=== PATIENT | female | born 1995 | race Caucasian/White ===

== ENCOUNTER 2020-07-23 17:09 | Observation (INO) | payer OTHER, MEDICAID ==
[2020-07-23] MEDS ORDERED: BETAMET ACET/BETAMET NA INJ 6 MG/1 ML IM ONE (18:55)
[2020-07-23] MEDS ORDERED: BETAMET ACET/BETAMET NA INJ 6 MG/1 ML ONE (19:11)
[2020-07-23 19:36] LABS: BACTERIA (WET MOUNT) 4+ BACTERIA SEEN; EPITHELIALS (WET MOUNT) 3+ EPITHELIALS SEEN; RBCS (WET MOUNT) RARE RBCS SEEN; T.VAGINALIS (WET MOUNT) NO TRICHOMONAS SEEN; WBCS (WET MOUNT) 3+ WBCS SEEN; YEAST (WET MOUNT) NO YEAST SEEN
[2020-07-23] MEDS ORDERED: LABETALOL HCL 200 MG TABLET ONE (19:51)
[2020-07-23] MEDS ORDERED: RINGERS SOLUTION,LACTATED 1,000 ML IV ONE (20:28)
[2020-07-23] MEDS ORDERED: RINGERS SOLUTION,LACTATED 1,000 ML IV PRN (20:28)
[2020-07-23 20:44] LABS: URINE BARBITURATES SCREEN NEGATIVE; URINE BENZODIAZEPINES SCREEN NEGATIVE; URINE COCAINE SCREEN NEGATIVE; URINE MARIJUANA (THC) SCREEN NEGATIVE; URINE METHADONE SCREEN NEGATIVE; URINE PHENCYCLIDINE SCREEN NEGATIVE
[2020-07-23 20:48] LABS: URINE AMPHETAMINES SCREEN UNCONFIRMED POSITIVE
[2020-07-23 21:02] LABS: CHLAM PCR NOT DETECTED (NOT DETECT)
[2020-07-23 21:16] LABS: AMORPHOUS SEDIMENT,URINE TRACE /HPF; APPEARANCE,URINE CLOUDY; BILIRUBIN,URINE NEGATIVE (NEGATIVE); COLOR,URINE AMBER; GLUCOSE, URINE NEGATIVE (NEGATIVE); KETONES,URINE NEGATIVE (NEGATIVE); LEUKOCYTE ESTERASE,URINE SMALL (NEGATIVE); NITRITE,URINE NEGATIVE (NEGATIVE); PROTEIN,URINE 100 mg/dL (NEGATIVE); URINE SPECIFIC GRAVITY 1.015
[2020-07-23] MEDS ORDERED: NIFEDIPINE 30 MG TAB.ER.24 PO ONE ×2 (21:42→22:25)
[2020-07-23] MEDS ORDERED: LABETALOL HCL 200 MG TABLET PO SCH (22:00)
[2020-07-23 22:49] LABS: UR PRO/CREAT RATIO RESULT 0.4 mg/mg (0.0-0.2); URINE CREATININE 130.7 mg/dL (16-327); URINE PROTEIN 48.7 mg/dL (<12)
[2020-07-23 23:00] LABS: ABSOLUTE LYMPHOCYTES (AUTO) 1.2 10^3/uL (0.5-4.7); ABSOLUTE MONOCYTES (AUTO) 0.4 10^3/uL (0.1-1.4); ABSOLUTE NEUT (AUTO) 12.7 10^3/uL (1.7-8.2); BASOPHILS % (AUTO) 0.1 % (0-2); EOSINOPHILS % (AUTO) 0.2 % (0-6); HEMATOCRIT 36.4 % (36.0-47.0); HEMOGLOBIN 12.5 g/dL (12.0-15.5); LYMPHOCYTES % (AUTO) 8.4 % (13-45); MEAN CORPUSCULAR HEMOGLOBIN 28.2 pg (27.0-33.4); MEAN CORPUSCULAR HGB CONC 34.5 g/dL (32.0-36.0); MEAN CORPUSCULAR VOLUME 82 fl (80-97); MONOCYTES % (AUTO) 2.7 % (3-13); PLATELET COUNT 202 10^3/uL (150-450); RED BLOOD COUNT 4.45 10^6/uL (3.72-5.28); RED CELL DISTRIBUTION WIDTH 13.9 % (11.5-14.0); SEGMENTED NEUTROPHILS % (AUTO) 88.6 % (42-78); TOTAL CELLS COUNTED % (AUTO) 100 %; WHITE BLOOD COUNT 14.3 10^3/uL (4.0-10.5)
[2020-07-23 23:14] LABS: ALBUMIN 3.3 g/dL (3.5-5.0); ALKALINE PHOSPHATASE 165 U/L (38-126); ANION GAP 6 (5-19); ASPARTATE AMINO TRANSFERASE 26 U/L (14-36); BILIRUBIN,DIRECT 0.3 mg/dL (0.0-0.4); BILIRUBIN,TOTAL 0.8 mg/dL (0.2-1.3); BLOOD UREA NITROGEN 5 mg/dL (7-20); CALCIUM 9.7 mg/dL (8.4-10.2); CARBON DIOXIDE 24 mmol/L (22-30); CHLORIDE 101 mmol/L (98-107); GLUCOSE 98 mg/dL (75-110); TOTAL PROTEIN 5.9 g/dL (6.3-8.2)
--- NOTE | 2020-07-23 23:49 | Admission Physical ---
Datetime Report Generated by CPN: 07/23/2020 23:49 CURRENT ADMISSION Chief Complaint: Uterine Contractions; Signs/Symptoms Gestational HTN Indication for Induction: Not Applicable Admit Impression : , Intrauterine ; Intact Membranes; Observation/Evaluation Admit Plan: Admit to Unit; Observation/Evaluation ALLERGIES Medication Allergies: No Known Allergies (07/23/2020) OBSTETRICAL HISTORY EDC: 08/17/2020 00:00 : 1 Para: 0 Term: 0 : 0 SAB: 0 IAB: 0 Livin PHYSICAL EXAM General: Normal HEENT: Normal Neurologic: Normal Thyroid: Deferred Heart: Normal Lungs: Normal Breast: Deferred Back: Normal Abdomen: Normal Genitourinary Exam: Normal Extremities: Normal DTRs: Normal Pelvic Type: Adequate Vital Signs: Reviewed VAGINAL EXAM Dilatation: 2 Effacement: 50 Station: -2 Contraction Comments: irreg MEMBRANES Membranes: Intact FETUS A EGA: 36.3 Monitoring: External US FHR- Baseline: 125 Variability: Moderate 6-25bpm Accelerations: 15X15 Decelerations: None Presentation: Vertex Admit Comment: 23yo at 36+3ega presented initially from the office for NR NST from the office (being monitored due to CHTN). She is supposed to be on Labetolol 200mg po TID - however, patient reports that she does not take it usually. She reports that she had intercourse last night and was judie q 5 minutes. Cvx 1-2cm and IVF started. Labs ordered and celestone ordered. She was dx with poly today (JYOTSNA 24.8, SDP not in record). She recently stopped mood stablizers. H/o Heroid abuse on subutex. UDS - noted amphetamines (pt declines use). Reviewed that with also noted severe range BPs (she was given her usual does of labetolol and also procardia) would recommend in house 24 hour UTP and repeat labs. Her P:C ratio was 0.4 and baseline 24 hr UTP on 06/18/2020 was 91. Admit, adjust BP meds, 24 hr UTP, repeat steroids tomorrow. INFORMED CONSENT Informed Consent Obtained: Vaginal Delivery; Risks, Benefits and Alternatives Discussed Signature: with User ID: [email or web address]
--- NOTE | 2020-07-23 23:53 | Left Against Medical Advice ---
Against Medical Advice Admission Date/Time: 07/23/20 21:48 Primary Care Provider: Date of Patient Emigration: 07/23/20 - Diagnosis: (1) Chronic hypertension affecting Is this a current diagnosis for this admission?: Yes (2) Poor compliance with medication Is this a current diagnosis for this admission?: Yes - Summary: Summary: Please see Admission and Progress Notes as well. COLLEEN RODRIGUEZ is a 25 F, who LEFT AGAINST MEDICAL ADVICE. The Patient was admitted on 07/23/20 21:48 for severe range BPs in . Known CHTN and suspected superimpsed PreE with P;C ratio of 0.4. UDS noted amphetamines - pt declines. However the longer she was here the more agitated she was. She also had been having q 5 minute ctx then irregular ctx after fluids. Cvx initially 1-2cm then when I rechecked her she was 2cm. Recommended BMZ and continued monitoring. She desires to leave AMA. She reports she is not concerned about her BPs because she was in 9th grade she had BPs 190s/130s. Everytime I tried to explain why it was safer to remain in hospital to complete eval she had another comeback. Reviewed risk fo stroke, IN, seizure, demise, maternal , cerebal palsy, developmental delay, abruption etc. Pt declines to remain in hospital and left AMA.
[2020-07-24] MEDS ORDERED: SERTRALINE HCL 50 MG TABLET PO SCH (10:00)
== END 2020-07-23 23:50 | disposition left against medical advice (07) ==
LOC: LC 17:09 → LR 21:39 → OBSVTOIN 21:48 → INTOOBSV 21:48
PROVIDERS: ADMIT Student in an Organized Health Care Education/Training Program; ATTEND Student in an Organized Health Care Education/Training Program
DX: O10.913 Unspecified pre-existing hypertension complicating pregnancy, third trimester (principal); O26.893 Other specified pregnancy related conditions, third trimester; Z91.14 Patient's other noncompliance with medication regimen; R45.1 Restlessness and agitation; F11.11 Opioid abuse, in remission; O40.3XX0 Polyhydramnios, third trimester, not applicable or unspecified; R82.5 Elevated urine levels of drugs, medicaments and biological substances; Z3A.36 36 weeks gestation of pregnancy
CPT/HCPCS: 59025; 36415; 87210; 83615; 84156; 84550; 82570; 85025; 87077; 80053; 81001; 87081; 80307 ×2; 87491; 87591; 84112; G0480; J0702

== ENCOUNTER 2020-08-03 19:08 | Outpatient (CLI) | payer OTHER, MEDICAID ==
--- NOTE | 2020-08-03 19:19 | Non Stress Test Report ---
Non Stress Test Datetime Report Generated by CPN: 08/03/2020 19:18 DEMOGRAPHIC EGA NST: 36.4 MONITORING Monitor Explained: Monitor Explained; Test Explained; Patient Verbalized Understanding Time on Monitor: 07/24/2020 19:21 Time off Monitor: 07/24/2020 23:33 NST Duration: 252 NST INTERVENTIONS NST Interventions: IV Fluids; Meal Given Physician Notified NST: Dr. Tellez BABY A: [id number] BABY A Movement : Present Contraction Frequency : Irregular, Irritability FHR Baseline : 135 Accelerations : 15X15 Decelerations : None Variability : Moderate 6-25bpm NST Review: Meets Criteria for Reactive NST NST Review and Verified By : RN Cary NST Results: Reactive NST COMMENTS NST Comments: Patient signed out AMA. NST REPORT Report Trigger: Send Report
--- NOTE | 2020-08-03 20:49 | Non Stress Test Report ---
Non Stress Test Datetime Report Generated by CPN: 08/03/2020 20:49 DEMOGRAPHIC EGA NST: 38.0 INDICATION Indication for Study (NST) Other: b/p VITAL SIGNS Temperature - NST: 98.4 Pulse - NST: 75 RESP - NST: 18 NBPSYS NST: 122 NBPDIA NST: 81 MONITORING Monitor Explained: Monitor Explained; Test Explained; Patient Verbalized Understanding Time on Monitor: 08/03/2020 19:22 Time off Monitor: 08/03/2020 20:45 NST Duration: 83 NST INTERVENTIONS NST Interventions: PO Hydration; Reposition Patient Physician Notified NST: Dr. Wall BABY A Movement : Present Contraction Frequency : Irregular FHR Baseline : 135 Accelerations : 15X15 Decelerations : Variable Variability : Moderate 6-25bpm NST Review: Meets Criteria for Reactive NST NST Review and Verified By : Maverick Hawley RN NST Results: Reactive NST REPORT Report Trigger: Send Report
== END 2020-08-03 20:55 | disposition home or self-care (01) ==
LOC: LC 19:08
PROVIDERS: ATTEND Obstetrics & Gynecology Gynecology
DX: O10.913 Unspecified pre-existing hypertension complicating pregnancy, third trimester (principal); Z3A.38 38 weeks gestation of pregnancy
CPT/HCPCS: 59025

== ENCOUNTER 2020-08-09 09:02 | Inpatient (IN) | payer OTHER, MEDICAID ==
[2020-08-09] MEDS: RINGERS SOLUTION,LACTATED 1,000 ML IV PRN ×2 (09:47→13:33)
[2020-08-09] MEDS ORDERED: OXYTOCIN 10 UNIT/ML VIAL ONE (09:52)
[2020-08-09] MEDS ORDERED: MISOPROSTOL 0.2 MG TABLET ONE (09:52)
[2020-08-09] MEDS ORDERED: PENICILLIN G-K 5 MILLION UNIT VIAL ONE (09:52)
[2020-08-09] MEDS ORDERED: OXYTOCIN/0.9 % SODIUM CHLORIDE 30 UNIT/500 ML RTUINJ ONE (09:53)
[2020-08-09] MEDS ORDERED: LIDOCAINE 1% INJ-PF (10 MG/ML) 30 ML SDV ONE (09:53)
[2020-08-09] MEDS ORDERED: PENICILLIN G POTASSIUM 5,000,000 UNIT in DEXTROSE 5%-WATER 100 ML IV ONE (09:57)
[2020-08-09] MEDS ORDERED: DEXTROSE 5%-LACTATED RINGERS 1,000 ML IV PRN (09:57)
[2020-08-09] MEDS ORDERED: OXYTOCIN/0.9 % SODIUM CHLORIDE 30 UNIT/500 ML RTUINJ IV PRN ×2 (09:57→21:34)
[2020-08-09 10:44] LABS: URINE AMPHETAMINES SCREEN NEGATIVE; URINE BARBITURATES SCREEN NEGATIVE; URINE BENZODIAZEPINES SCREEN NEGATIVE; URINE COCAINE SCREEN NEGATIVE; URINE MARIJUANA (THC) SCREEN NEGATIVE; URINE METHADONE SCREEN NEGATIVE; URINE PHENCYCLIDINE SCREEN NEGATIVE
[2020-08-09 11:03] LABS: HEMATOCRIT 35.3 % (36.0-47.0); HEMOGLOBIN 12.1 g/dL (12.0-15.5); MEAN CORPUSCULAR HEMOGLOBIN 27.8 pg (27.0-33.4); MEAN CORPUSCULAR HGB CONC 34.1 g/dL (32.0-36.0); MEAN CORPUSCULAR VOLUME 81 fl (80-97); PLATELET COUNT 187 10^3/uL (150-450); RED BLOOD COUNT 4.34 10^6/uL (3.72-5.28); RED CELL DISTRIBUTION WIDTH 14.4 % (11.5-14.0); WHITE BLOOD COUNT 11.5 10^3/uL (4.0-10.5)
--- NOTE | 2020-08-09 11:05 | Admission Physical ---
Datetime Report Generated by CPN: 08/09/2020 11:04 CURRENT ADMISSION Chief Complaint: Scheduled Induction of Labor Indication for Induction: Chronic Primary/Essential HTN Admit Impression : Term, Intrauterine ; Induction of Labor Admit Plan: Admit to Unit; Initiate Labor Induction Protocol Admit Plan- Other: Took Subutex and Labetalol this am ALLERGIES Medication Allergies: No Medication Allergies: house dust (08/09/2020); mold (08/09/2020) Latex: No Latex Allergies Environmental Allergies: Dust, Mold OBSTETRICAL HISTORY EDC: 08/17/2020 00:00 : 1 Para: 0 Term: 0 : 0 SAB: 0 IAB: 0 Ectopic: 0 Livin Cesareans: 0 VBACs: 0 Multiple Births: 0 Gestational Diabetes: No Rh Sensitization: No Incompetent Cervix: No ALMAZ: No Infertility: No ART Treatment: No Uterine Anomaly: No IUGR: No Hx Previous C/S: No Macrosomia: No Hx Loss/Stillborn: No PIH: No Hx : No Placenta Previa/Abruption: No Depression/PP Depression: Yes PTL/PROM: No Post Hemorrhage: No Current Procedures: Ultrasound; NST; BPP Obstetrical History Comments: G1 current SEE RECORDS Alcohol: No Marijuana : No Cocaine: No Other Illicit Drugs: No Cigarettes: Former Smoker. [id number] Cigarette Comments: Currently uses Vape with nicotine 3% MEDICAL HISTORY Diabetes: No Blood Transfusion: No Pulmonary Disease (Asthma, TB): No Breast Disease: No Hypertension: No Used Building Materials Yard Worker Surgery: No Heart Disease: No Hosp/Surgery: Yes Autoimmune Disorder: No Anesthetic Complications: No Kidney Disease: No Abnormal Pap Smear: No Neuro/Epilepsy: No Psychiatric Disorders: Yes Other Medical Diseases: No Hepatitis/Liver Disease: No Significant Family History: No Varicosities/Phlebitis: No Trauma/Violence : No Thyroid Dysfunction: No Medical History Comments: Tonsillectomy at 7 years old, anxiety/depression on zoloft, migraines on fioricet, chronic HTN on labetalol, INFECTIOUS HISTORY Gonorrhea: No Genital Herpes: No Chlamydia: No Tuberculosis: No Syphilis: No Hepatitis: No HIV/AIDS Exposure: No Rash or Viral Illness: No HPV: No PHYSICAL EXAM General: Normal HEENT: Deferred Neurologic: Normal Thyroid: Deferred Heart: Normal Lungs: Normal Breast: Deferred Back: Deferred Abdomen: Normal Genitourinary Exam: Normal Extremities: Normal DTRs: Deferred Pelvic Type: Adequate Vital Signs: Reviewed VAGINAL EXAM Dilatation: 4 Effacement: 70 Station: -1 Contraction Comments: irreg MEMBRANES Membranes: Intact FETUS A EGA: 38.6 Monitoring: External US FHR- Baseline: 143 Variability: Moderate 6-25bpm Accelerations: 10X10 Decelerations: None Presentation: Vertex Admit Comment: G1 term with CHTN on Subutex d/t hx of heroin abuse Anxiety, bipolar hx Migraines, on Fioricet Urine drug screen negative She did have a POS UDS for methamphetamines on 07/23 PLANS FOR LABOR AND DELIVERY Labor and Delivery: None Pain Management: Natural; Epidural Feeding Preference: Breast Benefit of Breast Feed Discussed: Yes Circumcision: N/A INFORMED CONSENT Informed Consent Obtained: Vaginal Delivery; Risks, Benefits and Alternatives Discussed Assignment: Kamala Spencer MD Signature: with User ID: Lia : with User ID: [email or web address]
[2020-08-09 11:21] LABS: ALBUMIN 3.1 g/dL (3.5-5.0); ALKALINE PHOSPHATASE 165 U/L (38-126); ANION GAP 6 (5-19); ASPARTATE AMINO TRANSFERASE 23 U/L (14-36); BILIRUBIN,DIRECT 0.2 mg/dL (0.0-0.4); BILIRUBIN,TOTAL 0.5 mg/dL (0.2-1.3); BLOOD UREA NITROGEN 10 mg/dL (7-20); CALCIUM 8.9 mg/dL (8.4-10.2); CARBON DIOXIDE 25 mmol/L (22-30); CHLORIDE 104 mmol/L (98-107); GLUCOSE 79 mg/dL (75-110); POTASSIUM 4.2 mmol/L (3.6-5.0); TOTAL PROTEIN 5.5 g/dL (6.3-8.2); URIC ACID 4.9 mg/dL (2.5-6.2)
[2020-08-09] MEDS: PENICILLIN G POTASSIUM 2,500,000 UNIT in DEXTROSE 5%-WATER 50 ML IV SCH ×2 (14:50→18:33)
[2020-08-09] MEDS ORDERED: FENTANYL/BUPIVACAINE/NS/PF 300 MCG/150 ML RTUINJ EPI ONE (14:58)
[2020-08-09] MEDS ORDERED: EPHEDRINE SULFATE INJ 50 MG/1 ML AMPULE ONE (14:58)
[2020-08-09] MEDS ORDERED: ROPIVACAINE HCL 0.2% INJ/PF (2 MG/ML) 20 ML SDV ONE (14:58)
[2020-08-09] MEDS ORDERED: ONDANSETRON HCL INJ/PF 4 MG/2 ML SDV ONE (19:36)
[2020-08-09] MEDS ORDERED: MAGNESIUM HYDROXIDE SUSP 30 ML UDCUP PO PRN (21:34)
[2020-08-09] MEDS ORDERED: GLYCERIN/WITCH HAZEL LEAF 1 EACH MED..WIPE TP PRN (21:34)
[2020-08-09] MEDS ORDERED: PROMETHAZINE HCL 25 MG SUPP.RECT PR PRN (21:34)
[2020-08-09] MEDS ORDERED: ACETAMINOPHEN WITH CODEINE #3 TABLET PO PRN ×2 (21:34)
[2020-08-09] MEDS ORDERED: DIPH/PERTUSS(ACELL)/TETANUS VAC/PF 0.5 ML SYR (>=10YO) IM PRN (21:34)
[2020-08-09] MEDS ORDERED: PSEUDOEPHEDRINE HCL 30 MG TABLET PO PRN (21:34)
[2020-08-09] MEDS ORDERED: DIPHENHYDRAMINE HCL 25 MG CAPSULE PO PRN (21:34)
[2020-08-09] MEDS ORDERED: ACETAMINOPHEN 650 MG SUPP.RECT PR PRN (21:34)
[2020-08-09] MEDS ORDERED: PROMETHAZINE HCL INJ 25 MG/1 ML VIAL IV PRN (21:34)
[2020-08-09] MEDS ORDERED: DIBUCAINE 1% OINTMENT 28 GM TP PRN (21:34)
[2020-08-09] MEDS ORDERED: ACETAMINOPHEN 325 MG TABLET PO PRN (21:34)
[2020-08-09] MEDS ORDERED: PROMETHAZINE HCL 25 MG TABLET PO PRN (21:34)
[2020-08-09] MEDS ORDERED: BENZOCAINE/MENTHOL AEROSOL SPRAY 56 ML TOP PRN (21:34)
[2020-08-09] MEDS ORDERED: NA PHOS,M-B/NA PHOS,DI-BA (ADULT) 133 ML ENEMA PR PRN (21:34)
[2020-08-09] MEDS ORDERED: MEASLES,MUMPS&RUBELLA VACC/PF 0.5 ML VIAL SUBCUT PRN (21:34)
[2020-08-09] MEDS ORDERED: ZOLPIDEM TARTRATE 5 MG TABLET PO PRN (21:34)
[2020-08-09 22:20] LABS: HEMATOCRIT 34.9 % (36.0-47.0); HEMOGLOBIN 11.8 g/dL (12.0-15.5); MEAN CORPUSCULAR HEMOGLOBIN 27.9 pg (27.0-33.4); MEAN CORPUSCULAR VOLUME 82 fl (80-97); PLATELET COUNT 208 10^3/uL (150-450); RED BLOOD COUNT 4.24 10^6/uL (3.72-5.28); RED CELL DISTRIBUTION WIDTH 14.4 % (11.5-14.0); WHITE BLOOD COUNT 12.7 10^3/uL (4.0-10.5)
[2020-08-09] MEDS ORDERED: TRANEXAMIC ACID INJ/PF 1,000 MG/10 ML SDV ONE (22:41)
[2020-08-09] MEDS ORDERED: TRANEXAMIC ACID INJ/PF 1,000 MG/10 ML SDV IV PRN (22:45)
--- NOTE | 2020-08-09 23:02 | Delivery Summary ---
Del Sum A-C Datetime Report Generated by CPN: 08/09/2020 23:01 DELIVERY PERSONNEL DELIVERY PERSONNEL: [id number] Delivery Doctor:: Kamala Spencer MD Labor and Delivery Nurse:: Laurence Landaverde RNroll forger Nurse:: Sharmin Sosa RNC Nursery Nurse:: Cris Adkins RN MSN Machine Cage Maker/INJECTION MOLDING ENGINEER: ST Mabel Machine Cage Maker/INJECTION MOLDING ENGINEER: Alyssa Grissom, SPRAYING MACHINE OPERATOR MATERNAL INFORMATION Delivery Anesthesia: Epidural Medications After Delivery: Pitocin 30 Units in 500ml NS/D5W Estimated Blood Loss (ml): 250 Delivery QBL: 100 Maternal Complications: None LABOR SUMMARY EDC: 08/17/2020 00:00 No. Babies in Womb: 1 Attempted: No Labor Anesthesia: Epidural LABOR INFORMATION Reason for Induction: Chronic Primary/Essential HTN Onset of Labor: 08/09/2020 14:14 Complete Dilatation: 08/09/2020 18:39 Cervical Ripening Agents: Cytotec @ 1000 Oxytocin: Induction Group B Beta Strep: Positive Antibiotics # of Doses: 3 Antibiotics Time of Last Dose: 08/09/2020 18:33 Name of Antibiotic Given: penicillin Steroids Given: Partial Course Reason Steroids Not Administered: Not Applicable MEMBRANES Membranes Rupture Method: Artificial Rupture of Membranes: 08/09/2020 14:15 Length of Rupture (hr): 7.07 Amniotic Fluid Color: Light Meconium Amniotic Fluid Amount: Small Amniotic Fluid Odor: Normal STAGES OF LABOR Stage 1 hr: 4 Stage 1 min: 25 Stage 2 hr: 2 Stage 2 min: 40 Stage 3 hr: 0 Stage 3 min: 3 Total Time in Labor hr: 7 Total Time in Labor min: 8 VAGINAL DELIVERY Episiotomy: None Laceration #1: Vaginal Laceration Extension #1: First Degree Laceration Repair: Yes Laceration Repair Note: 2-0 chromic Sponge Count Correct: Yes Sharps Count Correct: Yes CSECTION DELIVERY Primary Indication: N/A Secondary Indication: N/A CSection Incidence: N/A Labor: N/A Elective: N/A CSection Incision: N/A BABY A INFORMATION Delivery Date/Time: 08/09/2020 21:19 Method of Delivery: Vaginal Nurse Controlled Delivery: No Born in Route : No : N/A Forceps: N/A Vacuum Extraction: N/A Shoulder Dystocia : No PRESENTATION/POSITION BABY A Presentation: Cephalic Cephalic Presentation: Vertex Vertex Position: Left Occipital Anterior Breech Presentation: N/A PLACENTA INFORMATION BABY A Placenta Delivery Time : 08/09/2020 21:22 Placenta Method of Delivery: Spontaneous Placenta Status: Delivered SCORES BABY A Heart Rate 1 min: >100 bpm Resp Effort 1 min: Good Cry Reflex Irritability 1 min: Cough or Sneeze or Pulls Away Muscle Tone 1 min: Active Motion Color 1 min: Blue/Pale Resuscitation Effort 1 min: Tactile Stimulation SCORE 1 MIN: 8 Heart Rate 5 min: >100 bpm Resp Effort 5 min: Good Cry Reflex Irritability 5 min: Cough or Sneeze or Pulls Away Muscle Tone 5 min: Active Motion Color 5 min: Body Sargent, Extremities Blue Resuscitation Effort 5 min: Tactile Stimulation SCORE 5 MIN: 9 INFORMATION BABY A Gestational Age at Delivery: 38.6 Gestational Status: Early Term- 37- 38.6 Weeks Outcome : Liveborn Infant Condition : Stable Infant Sex: Female IDENTIFICATION BABY A Verification Date/Time: 08/09/2020 21:59 ID Band Number: [id number] Mother's Name Verified: Yes RN Verifying : Bhavya Landaverde, RN and D. Anetaavanikiae, RN WEIGHT/LENGTH BABY A Infant Birthweight (gm): 3259 Weight (lb): 7 Infant Weight (oz): 3 Length (in): 19.00 Infant Length (cm): 48.26 CORD INFORMATION BABY A No. Cord Vessels: 3 Nuchal Cord : N/A Cord Blood Taken: Yes-For Storage (Mom's Blood type +) Infant Suction: Mouth; Nose ASSESSMENT BABY A Complications: None Physical Findings at Delivery: Other Physical Findings- Other: see initial nursery assessment Infant Respirations: Appears Normal Skin to Skin: Yes Checkering Machine Adjuster/ALS Called : No Infant Care By: Santos Adkins, RN Transferred To: Remains with Mother BABY B INFORMATION : N/A SIGNATURES Signature: with User ID: [email or web address] : I was personally available for consultation and serving as supervising physician for the MLP.
--- NOTE | 2020-08-09 23:02 | Birth Certificate Data ---
Cert Data Datetime Report Generated by CPN: 08/09/2020 23:01 CERTIFICATE DATA 47a. Care: Yes (07/23/2020 17:51:Annamarie Hernandez RN) 47b. Date of First Visit: 02/03/2020 00:00 (07/23/2020 17:51:Annamarie Hernandez RN) 47c. Date of Last Visit: 08/03/2020 00:00 (07/23/2020 17:51:Annamarie Hernandez RN) 47d. Number of Visits: 8 (07/23/2020 17:51:Annamarie Hernandez RN) 48a. Number of Prev Live Births: 0 (07/23/2020 17:51:Annamarie Hernandez RN) 48b. Now Livin (07/23/2020 17:51:Roxanne Grey RN) 48c. Live Births Now : 0 (07/23/2020 17:51:QS system process) 48e. Losses: 0 (07/23/2020 17:51:Annamarie Hernandez RN) RISK FACTORS IN THIS 49a. Diabetes: No (07/23/2020 17:51:Annamarie Hernandez RN) 49b. Hypertension: No (07/23/2020 17:51:Annamarie Hernandez RN) Type of Hypertension: Chronic (07/23/2020 17:51:Annamarie Hernandez RN) 49c. Previous Births: 0 (07/23/2020 17:51:Roxanne Grey RN) 49d. Stillborns: No (07/23/2020 17:51:Annamarie Hernandez RN) 49d. IUGR: No (07/23/2020 17:51:Annamarie Hernandez RN) 49e. Infertility Treatment: No (07/23/2020 17:51:Annamarie Hernandez RN) 49f. Previous Cesareans: 0 (07/23/2020 17:51:Annamarie Hernandez RN) Mother's Height 50b. Height Inches: 62 (08/09/2020 09:37:QS system process) Mother's Weight 51a. Pre- Weight (lbs): 161 (07/23/2020 17:51:Annamarie Hernandez RN) 51b. Weight at Delivery (lbs): 180 (08/09/2020 09:37:QS system process) 52. Dt Last Normal Menses Began: 11/11/2019 00:00 (07/23/2020 17:51:Annamarie Hernandez RN) Infections Present/Treated 53a. Gonorrhea: No (07/23/2020 17:51:Annamarie Hernandez RN) Results this Hospital Visit : Negative (07/23/2020 17:51:Annamarie Hernandez RN) 53b. Syphilis: No (07/23/2020 17:51:Annamarie Hernandez RN) 53c. Chlamydia: No (07/23/2020 17:51:Annamarie Hernandez RN) Results this Hospital Visit: Negative (07/23/2020 17:51:Annamarie Hernandez RN) 53d. Hepatitis B: No (07/23/2020 17:51:Annamarie Hernandez RN) Results this Hospital Visit: Negative (07/23/2020 17:51:Annamarie Hernandez RN) 53e. Hepatitis C: Negative (07/23/2020 17:51:Annamarie Hernandez RN) 53h. Mother Tested for HBsAG: Yes (07/23/2020 17:51:Annamarie Hernandez RN) 53i. Date Tested: 02/03/2020 00:00 (07/23/2020 17:51:Annamarie Hernandez RN) 53j. Test Result: Negative (07/23/2020 17:51:Annamarie Hernandez RN) Obstetric Procedures 54a, b, c. Obstetric Procedures: Ultrasound; NST; BPP (07/23/2020 17:51:Annamarie Hernandez RN) Cigarette Smoking Cigarette Smoking: Former Smoker. [id number] (07/23/2020 17:51:Annamarie Hernandez RN) 55a. 3 Months Before Preg - Ci (07/23/2020 17:51:Annamarie Hernandez RN) 55a. Packs: 0 (07/23/2020 17:51:Annamarie Hernandez RN) 55b. 1st Trimester of Preg- Ci (07/23/2020 17:51:Annamarie Hernandez RN) 55b. Packs: 0 (07/23/2020 17:51:Annamarie Hernandez RN) 55c. 2nd Trimester of Preg- Ci (07/23/2020 17:51:Annamarie Hernandez RN) 55c. Packs: 0 (07/23/2020 17:51:Annamarie Hernandez RN) 55d. 3rd Trimester of Preg- Ci (07/23/2020 17:51:Annamarie Hernandez RN) 55d. Packs: 0 (07/23/2020 17:51:Annamarie Hernandez RN) Onset of Labor 56a. PROM >12 Hrs: 7.07 (07/23/2020 17:51:QS system process) 56b. Precipitous Labor <3 Hrs: 7 (07/23/2020 17:51:QS system process) 56c. Prolonged Labor > 20 Hrs: 7 (07/23/2020 17:51:QS system process) 57a. Induction of Labor: Induction (07/23/2020 17:51:Laurence Landaverde RN) 57a. Induction of Labor: Cytotec @ 1000 (08/09/2020 21:27:Laurence Landaverde RN) 57c. Non-Vertex Presentation A: Vertex (07/23/2020 17:51:Laurence Landaverde RN) 57d. Steroids - Lung Mat: Partial Course (07/23/2020 17:51:Laurence Landaverde RN) 57d. Steroids - Lung Mat: Celestone 12mg IM - Dose 1 (07/23/2020 19:17:Frieda You RN) 57d. Steroids - Lung Mat: Not Applicable (07/23/2020 17:51:Laurence Landaverde RN) 57e. Antibiotics During Labor: 08/09/2020 18:33 (07/23/2020 17:51:Laurence Landaverde RN) 57f. Mat [place] or Temp >100.4: 98.0 (07/23/2020 17:51:Laurence Landaverde RN) 57g. Moderate/Heavy Meconium: Light Meconium (08/09/2020 14:15:Annamarie Hernandez RN) 57h. Intolerance of Labor: N/A (07/23/2020 17:51:Laurence Landaverde RN) : N/A (07/23/2020 17:51:Laurence Landaverde RN) 57i. Epidural/Spinal Anesthesia: Epidural (07/23/2020 17:51:Laurence Landaverde RN) Method of Delivery 58a. Forceps - Unsuccessful A: N/A (07/23/2020 17:51:Laurence Landaverde RN) 58b. Vacuum - Unsuccessful A: N/A (07/23/2020 17:51:Laurence Landaverde RN) 58c. Presentation at 58c. Presentation at - A : Vertex (07/23/2020 17:51:Laurence Landaverde RN) 58c. Presentation at - A : N/A (07/23/2020 17:51:Laurence Landaverde RN) 58c. Presentation at - A : Cephalic (07/23/2020 17:51:Laurence Landaverde RN) Final Route and Method of Del 58d. Baby A Route/Delivery: Vaginal (08/09/2020 21:19:Laurence Landaverde RN) 58e. Trial of Labor Attempted: No (07/23/2020 17:51:Laurence Landaverde RN) 58e. Trial of Labor Attempted A: N/A (07/23/2020 17:51:Laurence Landaverde RN) 58e. Trial of Labor Attempted B: N/A (07/23/2020 17:51:Laurence Landaverde RN) Maternal Morbidity 59b. 3rd or 4th Degree Lacs: Vaginal (07/23/2020 17:51:Kamala Spencer MD (ANDDO)) 59b. 3rd or 4th Degree Lacs: First Degree (07/23/2020 17:51:Laurence Landaverde RN) Birthweight Baby A: 3259 (07/23/2020 17:51:Laurence Landaverde RN) 60a. Pounds : 7 (07/23/2020 17:51:QS system process) 60b. Ounces: 3 (07/23/2020 17:51:QS system process) 61. GA at Delivery Baby A: 38.6 (07/23/2020 17:51:Laurence Landaverde RN) : Early Term- 37- 38.6 Weeks (07/23/2020 17:51:QS system process) 62a. 5 Minute Baby A: 9 (07/23/2020 17:51:QS system process)
[2020-08-09] MEDS: IBUPROFEN 800 MG TABLET PO SCH (23:07)
[2020-08-09] MEDS: FAMOTIDINE 20 MG TABLET PO SCH (23:07)
[2020-08-10] MEDS: IBUPROFEN 800 MG TABLET PO SCH ×3 (05:46→21:52)
[2020-08-10 07:14] LABS: HEMATOCRIT 26.1 % (36.0-47.0); MEAN CORPUSCULAR HEMOGLOBIN 28.4 pg (27.0-33.4); MEAN CORPUSCULAR VOLUME 81 fl (80-97); PLATELET COUNT 169 10^3/uL (150-450); RED BLOOD COUNT 3.21 10^6/uL (3.72-5.28); RED CELL DISTRIBUTION WIDTH 14.2 % (11.5-14.0); WHITE BLOOD COUNT 11.8 10^3/uL (4.0-10.5)
[2020-08-10 07:19] LABS: HEMOGLOBIN 9.1 g/dL (12.0-15.5)
[2020-08-10] MEDS: FERROUS SULFATE 325 MG TABLET PO SCH ×2 (09:58→17:20)
[2020-08-10] MEDS: LORATADINE 10 MG TABLET PO SCH (09:58)
[2020-08-10] MEDS: SENNOSIDES/DOCUSATE 8.6-50 MG 1 EACH TABLET PO SCH (09:58)
[2020-08-10] MEDS: PRENATAL VITAMIN W DHA CAPSULE PO SCH (09:58)
[2020-08-10] MEDS: BUPRENORPHINE HCL 2 MG SUBLINGUAL TABLET SL SCH (09:58)
[2020-08-10] MEDS: SERTRALINE HCL 50 MG TABLET PO SCH (09:58)
[2020-08-10] MEDS: FAMOTIDINE 20 MG TABLET PO SCH ×2 (09:58→21:53)
[2020-08-10] MEDS: DOCUSATE SODIUM 100 MG CAPSULE PO SCH ×2 (09:58→17:20)
--- NOTE | 2020-08-10 12:40 | PDOC PROGRESS REPORT ---
Subjective-OB Progress Note for:: 08/10/20 - PP Day #1, doing well, UOB voiding, no headache, A+, Physical Exam (OB) Vital Signs: Temp Pulse Resp BP Pulse Ox 98.0 F 82 15 119/74 98 08/10/20 11:23 08/10/20 11:23 08/10/20 11:23 08/10/20 11:23 08/10/20 11:23 Intake & Output 08/09/20 08/10/20 08/11/20 06:59 06:59 06:59 Intake Total 471 480 Output Total 200 Balance 271 480 Weight 82.3 kg - General General Appearance: Appears well, Alert In distress: None - PIH/Pre-Eclampsia Clonus: Negative Headache: Absent Epigastric Pain: No Visual Changes: No - Maternal Morbidity 59. Maternal Morbidity (serious complications experinced by the mother associated with labor and delivery: None of the above - Lochia Lochia Amount: Moderate 25-50 ml Lochia Color: Rubra/Red - Abdomen Description: Soft, Round Hernia Present: No Fundal Description: Firm, Midline Fundal Height: u/u - u/2 - Respiratory Respiratory Status: No respiratory distress - Abdominal Distension: No distension - Genitourinary Genitourinary Note: voiding - Extremities Upper extremity: Normal inspection Lower extremities: Normal inspection - Neurological Cognition: Normal Orientation: AAOx4 - Psychological Associated symptoms: Normal affect, Normal mood Objective-Diagnostic Laboratory: 08/10/20 06:51 08/09/20 10:24 08/09/20 08/10/20 22:13 06:51 WBC 12.7 H 11.8 H RBC 4.24 3.21 L Hgb 11.8 L 9.1 L D Hct 34.9 L 26.1 L MCV 82 81 MCH 27.9 28.4 MCHC 34.0 35.0 RDW 14.4 H 14.2 H Plt Count 208 169 Assessment and Plan(PN) - Assessment and Plan (1) (normal spontaneous vaginal delivery) Is this a current diagnosis for this admission?: Yes (2) Acute blood loss anemia Is this a current diagnosis for this admission?: Yes (3) Chronic hypertension affecting Is this a current diagnosis for this admission?: Yes (4) Poor compliance with medication Is this a current diagnosis for this admission?: Yes Plan:: routine PP orders, ambulation encouraged - Time Spent with Patient Time with patient: Less than 15 minutes Medications reviewed and adjusted accordingly: Yes - Disposition Anticipated Discharge Disposition: Home, Self Care Anticipated Discharge Timeframe: within 24 hours
[2020-08-11] MEDS: IBUPROFEN 800 MG TABLET PO SCH ×2 (05:47→16:57)
[2020-08-11] MEDS ORDERED: INFLUENZA QUAD (6MOS+) 2020-21 VAC 0.5 ML SYR IM ONE (08:00)
[2020-08-11] MEDS: LORATADINE 10 MG TABLET PO SCH (09:53)
[2020-08-11] MEDS: FERROUS SULFATE 325 MG TABLET PO SCH (09:53)
[2020-08-11] MEDS: PRENATAL VITAMIN W DHA CAPSULE PO SCH (09:53)
[2020-08-11] MEDS: SERTRALINE HCL 50 MG TABLET PO SCH (09:53)
[2020-08-11] MEDS: DOCUSATE SODIUM 100 MG CAPSULE PO SCH (09:53)
[2020-08-11] MEDS: SENNOSIDES/DOCUSATE 8.6-50 MG 1 EACH TABLET PO SCH (09:54)
[2020-08-11] MEDS: BUPRENORPHINE HCL 2 MG SUBLINGUAL TABLET SL SCH (09:54)
[2020-08-11] MEDS: FAMOTIDINE 20 MG TABLET PO SCH (09:58)
--- NOTE | 2020-08-11 12:34 | PDOC DISCHARGE SUMMARY ---
Impression - Admit/DC Date/PCP Admission Date/Primary Care Provider: 08/09/20 09:02 Discharge Date: 08/11/20 - PP Day #2, pt doing well, no c/o headache, Hx CHTN. A+, Rubella Immune, bottledeeding, Pt may need to Nest overnight if baby is unable to go home today - Discharge Diagnosis (1) (normal spontaneous vaginal delivery) Is this a current diagnosis for this admission?: Yes (2) Acute blood loss anemia Is this a current diagnosis for this admission?: Yes (3) Chronic hypertension affecting Is this a current diagnosis for this admission?: Yes (4) Poor compliance with medication Is this a current diagnosis for this admission?: Yes - Additional Information Resuscitation Status: Full Code Discharge Diet: As Tolerated, Regular Discharge Activity: Activity As Tolerated, No Lifting Over 10 Pounds, Pelvic Rest Home Medications: Buprenorphine HCl [Subutex 2 mg Sl Tablet] 8 mg SL DAILY 07/23/20 Pnv 102/Iron/Folate 1/Dss/Dha [Vitafol Fe+ Docusate Combo Pck] 1 each PO DAILY 07/23/20 Sertraline HCl [Zoloft 50 mg Tablet] 100 mg PO DAILY 07/23/20 Ibuprofen [Motrin 800 mg Tablet] 800 mg PO Q8 tablet 08/11/20 HPI Reason(s) for Admission: Induction of Labor Procedures: Ultrasound Intrapartum Procedure(s): Spontaneous Vaginal Delivery Complication(s): Laceration-Vaginal Laceration-Degree: 1st Hospital Course 59. Maternal Morbidity (serious complications experinced by the mother associated with labor and delivery: None of the above Results Laboratory Results: WBC 11.8 10^3/uL (4.0-10.5) H 08/10/20 06:51 RBC 3.21 10^6/uL (3.72-5.28) L 08/10/20 06:51 Hgb 9.1 g/dL (12.0-15.5) L D 08/10/20 06:51 Hct 26.1 % (36.0-47.0) L 08/10/20 06:51 MCV 81 fl (80-97) 08/10/20 06:51 MCH 28.4 pg (27.0-33.4) 08/10/20 06:51 MCHC 35.0 g/dL (32.0-36.0) 08/10/20 06:51 RDW 14.2 % (11.5-14.0) H 08/10/20 06:51 Plt Count 169 10^3/uL (150-450) 08/10/20 06:51 Sodium 135.1 mmol/L (137-145) L 08/09/20 10:24 Potassium 4.2 mmol/L (3.6-5.0) 08/09/20 10:24 Chloride 104 mmol/L (98-107) 08/09/20 10:24 Carbon Dioxide 25 mmol/L (22-30) 08/09/20 10:24 Anion Gap 6 (5-19) 08/09/20 10:24 BUN 10 mg/dL (7-20) 08/09/20 10:24 Creatinine 0.57 mg/dL (0.52-1.25) 08/09/20 10:24 Est GFR ( Amer) > 60 (>60) 08/09/20 10:24 Est GFR (MDRD) Non-Af > 60 (>60) 08/09/20 10:24 Glucose 79 mg/dL (75-110) 08/09/20 10:24 Uric Acid 4.9 mg/dL (2.5-6.2) 08/09/20 10:24 Calcium 8.9 mg/dL (8.4-10.2) 08/09/20 10:24 Total Bilirubin 0.5 mg/dL (0.2-1.3) 08/09/20 10:24 Direct Bilirubin 0.2 mg/dL (0.0-0.4) 08/09/20 10:24 Neonat Total Bilirubin Not Reportable 08/09/20 10:24 Neonat Direct Bilirubin Not Reportable 08/09/20 10:24 Neonat Indirect Bili Not Reportable 08/09/20 10:24 AST 23 U/L (14-36) 08/09/20 10:24 ALT 11 U/L (<35) 08/09/20 10:24 Alkaline Phosphatase 165 U/L (38-126) H 08/09/20 10:24 Lactate Dehydrogenase 203 U/L (120-246) 08/09/20 10:24 Total Protein 5.5 g/dL (6.3-8.2) L 08/09/20 10:24 Albumin 3.1 g/dL (3.5-5.0) L 08/09/20 10:24 Urine Opiates Screen NEGATIVE 08/09/20 09:22 Urine Methadone Screen NEGATIVE 08/09/20 09:22 Ur Barbiturates Screen NEGATIVE 08/09/20 09:22 Ur Phencyclidine Scrn NEGATIVE 08/09/20 09:22 Ur Amphetamines Screen NEGATIVE 08/09/20 09:22 U Benzodiazepines Scrn NEGATIVE 08/09/20 09:22 Urine Cocaine Screen NEGATIVE 08/09/20 09:22 U Marijuana (THC) Screen NEGATIVE 08/09/20 09:22 RPR NONREACTIVE (NONREACTIVE) 08/09/20 10:24 Blood Type A POSITIVE 08/09/20 10:24 Antibody Screen NEGATIVE 08/09/20 10:24 Plan Plan of Treatment: d/c home, f/up with [facility] in one week for BP check. BP precautions reviewed. Will not restart Labetalol yet, check BP at the office Time Spent: Less than 30 Minutes
[2020-08-11 16:36] VITALS: BP 121/75
== END 2020-08-11 17:30 | disposition home or self-care (01) | DRG 806 ==
LOC: LR 09:02 → 2S 23:49
PROVIDERS: ADMIT Obstetrics & Gynecology; ATTEND Obstetrics & Gynecology
PROC: 10E0XZZ Delivery of Products of Conception, External Approach (ICD-10-PCS; principal; 2020-08-09)
PROC: 3E033VJ Introduction of Other Hormone into Peripheral Vein, Percutaneous Approach (ICD-10-PCS; 2020-08-09)
PROC: 10907ZC Drainage of Amniotic Fluid, Therapeutic from Products of Conception, Via Natural or Artificial Opening (ICD-10-PCS; 2020-08-09)
PROC: 3E0234Z Introduction of Serum, Toxoid and Vaccine into Muscle, Percutaneous Approach (ICD-10-PCS; 2020-08-11)
DX: O10.02 Pre-existing essential hypertension complicating childbirth (principal); D62 Acute posthemorrhagic anemia; Z37.0 Single live birth; O99.354 Diseases of the nervous system complicating childbirth; O70.0 First degree perineal laceration during delivery; O90.81 Anemia of the puerperium; O99.824 Streptococcus B carrier state complicating childbirth; O99.344 Other mental disorders complicating childbirth; F32.9 Major depressive disorder, single episode, unspecified; F41.9 Anxiety disorder, unspecified; G43.909 Migraine, unspecified, not intractable, without status migrainosus; Z3A.38 38 weeks gestation of pregnancy; Z03.818 Encounter for observation for suspected exposure to other biological agents ruled out; Z23 Encounter for immunization; Z91.14 Patient's other noncompliance with medication regimen; Z87.891 Personal history of nicotine dependence
CPT/HCPCS: 1967; 36415; 80053; 80307; 83615; 84550; 85027; 86592; 86850; 86900; 86901; 90715; J0571; J2405; J2540; J2590; J2795; J3010; J3490; J7060